=== PATIENT | male | born 1960 | race Hispanic/Latino ===

== ENCOUNTER 2019-01-23 09:05 | Day surgery (SDC) | payer MEDICARE ==
[2019-01-20 16:06] LABS: BASOPHILS % (AUTO) 0.3 % (0.0-5.0); EOSINOPHILS % (AUTO) 1.2 % (0.0-8.0); LYMPHOCYTES % (AUTO) 24.6 % (21.0-51.0); MEAN CORPUSCULAR HEMOGLOBIN 29.6 pg (27.0-33.0); MEAN CORPUSCULAR HGB CONC 33.7 g/dL (32.0-36.0); MEAN CORPUSCULAR VOLUME 87.8 fL (79-99); MONOCYTES % (AUTO) 7.1 % (3.0-13.0); NEUTROPHILS % (AUTO) 66.8 % (40.0-77.0); NUCLEATED RED BLOOD CELLS 0.1 % (0.0-0.19); PLATELET COUNT (AUTO) 269 K/uL (130-400); RED BLOOD CELL COUNT(AUTO) 5.02 MIL/uL (4.50-6.20); RED CELL DISTRIBUTION WIDTH 13.8 % (11.0-15.5); WHITE BLOOD COUNT (AUTO) 5.4 K/uL (4.8-10.8)
[2019-01-20 16:15] LABS: CREATININE 1.6 mg/dL (0.5-1.5); POTASSIUM 3.3 mmol/L (3.5-5.1)
[2019-01-20 16:17] VITALS: BP 116/81
--- NOTE | 2019-01-20 17:24 | NUR ---
NOTIFIED K 3.3, BUN AND CREAT ABNORMAL LEVELS TO DR. RODRÍGUEZ. PER DR. RODRÍGUEZ OK TO PROCEED AND REDRAW K IN AM OF PROCEDURE.
[2019-01-23] VITALS (13 sets, daily range): BP systolic 102–137; BP diastolic 56–85
[~2019-01-23] VITALS: Ht 170.2 cm; Wt 72.8 kg
[~2019-01-23 09:05] MED LIST: BIMA2.5D4 OD; DORZ10DR9 OD; ESOM40CA54 PO; FLUT15.88 EN; HYDR25TA PO; LINA290C PO; LORA10TA7 PO; PRED5DRO17 OS; SUCR1TAB2 PO; TAMS0.4C32 PO; TRAZ-185 PO; ZOLP10TA6 PO
[2019-01-23] MEDS ORDERED: CEFAZOLIN SODIUM 1 GM VIAL ONE (09:37)
[2019-01-23] MEDS ORDERED: LACTATED RINGERS 1000ML 1,000 ML IV ONE (09:37)
[2019-01-23] MEDS: CEFAZOLIN SODIUM 1 GM VIAL IVP ONE ×2 (09:49→12:15)
[2019-01-23] MEDS ORDERED: HYDR-4068 PO (10:00)
[2019-01-23] MEDS ORDERED: POTASSIUM CHLORIDE 20MEQ/100ML 100 ML IV SCH (10:45)
[2019-01-23] MEDS ORDERED: EPINEPHRINE 1 MG/ML 30ML VIAL IJ ONE (11:02)
[2019-01-23] MEDS ORDERED: LIDOCAINE PF 2% 5ML ABBOJECT ONE (11:49)
[2019-01-23] MEDS ORDERED: MIDAZOLAM HCL 1 MG/ML 2ML VIAL ONE (11:49)
[2019-01-23] MEDS ORDERED: PROPOFOL 10 MG/ML 20ML VIAL IV ONE (11:49)
[2019-01-23] MEDS ORDERED: DEXAMETHASONE SOD PHOSPHATE 10MG/ML 1ML VIAL ONE (11:49)
[2019-01-23] MEDS ORDERED: ONDANSETRON HCL 4 MG/2 ML VIAL ONE (11:49)
[2019-01-23] MEDS ORDERED: FENTANYL CITRATE PF 50 MCG/1 ML 2ML VIAL ONE ×2 (11:50→12:40)
[2019-01-23] MEDS ORDERED: ROCURONIUM 10MG/1ML SYR 10 MG/ML ML ONE (11:53)
[2019-01-23] MEDS ORDERED: ROPIVACAINE 0.5% 5MG/ML 30ML IJ ONE (11:53)
[2019-01-23] MEDS ORDERED: CEPH500B PO (13:54)
[2019-01-23] MEDS ORDERED: HYDR-4453 PO (13:54)
== END 2019-01-23 15:50 | disposition home or self-care (01) ==
LOC: DAH 09:05
PROVIDERS: ATTEND Orthopaedic Surgery
DX: S43.401A Unspecified sprain of right shoulder joint, initial encounter (principal); X58.XXXA Exposure to other specified factors, initial encounter; Y93.9 Activity, unspecified; Y92.89 Other specified places as the place of occurrence of the external cause; Y99.9 Unspecified external cause status; M75.41 Impingement syndrome of right shoulder; G89.29 Other chronic pain; Z79.899 Other long term (current) drug therapy; Z79.01 Long term (current) use of anticoagulants; I10 Essential (primary) hypertension; E78.5 Hyperlipidemia, unspecified; E11.9 Type 2 diabetes mellitus without complications; M19.90 Unspecified osteoarthritis, unspecified site; M06.9 Rheumatoid arthritis, unspecified; Z98.890 Other specified postprocedural states
CPT/HCPCS: 29822; 29824; 29826; 36415 ×2; 80048; 84132; 85025; 96365; A4218; A4565; A4649 ×2; A4930 ×2; A6204; G0168; J0171; J0690; J1100; J2001; J2250; J2405; J2704; J2795; J3010 ×2; J3480; J7120

== ENCOUNTER → 2020-07-04 | Outpatient (CLI) | payer MEDICARE ==
[~2020-07-04] MED LIST changes: +CEPH500B PO; +FLUT15.845 EN; -FLUT15.88 EN; +HYDR-4068 PO; +HYDR-4453 PO
== END | disposition home or self-care (01) ==
LOC: SHCH 08:34
PROVIDERS: ATTEND Internal Medicine Cardiovascular Disease
DX: I51.7 Cardiomegaly (principal); R06.09 Other forms of dyspnea
CPT/HCPCS: 93306; 93356

== ENCOUNTER → 2020-07-09 | Outpatient (CLI) | payer MEDICARE ==
[~2020-07-09] MED LIST changes: +REGADENOSON 0.4 MG/5 ML PF SYG IVP SCH
== END | disposition home or self-care (01) ==
LOC: SHCH 07:51
PROVIDERS: ATTEND Internal Medicine Cardiovascular Disease
DX: I20.9 Angina pectoris, unspecified (principal); R07.9 Chest pain, unspecified
CPT/HCPCS: 78452; 93017; 96374; A9500 ×2; J2785

== ENCOUNTER → 2021-04-24 | Outpatient (CLI) | payer MEDICARE ==
[~2021-04-24] MED LIST changes: +AMLO2.5T4 PO; +BUSP10TA3 PO; +FAMO40TA7 PO; +ISOS30TA92 PO; +LACT10SO32 PO; -REGADENOSON 0.4 MG/5 ML PF SYG IVP SCH
== END | disposition home or self-care (01) ==
LOC: DAH 10:00 → EDSTATUS 04-29 13:18
PROVIDERS: ATTEND Internal Medicine Gastroenterology
DX: Z01.810 Encounter for preprocedural cardiovascular examination (principal); Z20.822 Contact with and (suspected) exposure to COVID-19; I10 Essential (primary) hypertension; Z79.899 Other long term (current) drug therapy; Z98.890 Other specified postprocedural states
CPT/HCPCS: 87635 ×2; C9803 ×2

== ENCOUNTER → 2023-12-03 | Outpatient (CLI) | payer MEDICARE ==
[~2023-12-03] MED LIST changes: -CEPH500B PO; -DORZ10DR9 OD; -FLUT15.845 EN; -HYDR-4068 PO; -HYDR25TA PO; -LACT10SO32 PO; +LACT10SO85 PO; -PRED5DRO17 OS
== END | disposition home or self-care (01) ==
LOC: RAH 11:00
PROVIDERS: ATTEND Internal Medicine Cardiovascular Disease
DX: I65.21 Occlusion and stenosis of right carotid artery (principal)
CPT/HCPCS: 93880